=== PATIENT | female | born 1940 | race Two or more races ===

== ENCOUNTER → 2024-12-07 | Outpatient (CLI) | payer MEDICARE, MEDICAID, SELFPAY ==
--- NOTE | 2024-12-07 | XR_ITS ---
Examination: CT brain head without contrast. 2-D sagittal coronal reconstructions Date and time of exam:December 07, 2024 at 1242 hrs. Indications: Frequent falls over the last 2 weeks with injury to the head followed by headache CTDI: vol (mGy):40.9 DLP: (mGycm):944 Technique: Multiple CT axial sections of the brain have been obtained, 5 mm slice thickness. Contrast has not been administered. 2-D sagittal, coronal reconstructions have been obtained Low dose protocols were performed. One or more of the following dose reduction techniques were used; automated exposure control, adjustment of the mA and/or KV according to patient size, use of iterative reconstruction technique. Findings: No significant ventricular enlargement. Intra-axial or extra-axial hemorrhage density is not seen. No mass effect or midline shift Basal cisterns are not remarkable. Fourth ventricle is midline. Cranial vault intact. Impression: Negative for acute hemorrhage, mass effect or midline shift
== END | disposition home or self-care (01) ==
PROVIDERS: PCP Nurse Practitioner Family; Referring Provider Nurse Practitioner Family; Visit Provider Nurse Practitioner Family
DX: R51.9 Headache, unspecified (principal)
CPT/HCPCS: 70450

== ENCOUNTER → 2025-01-02 | Outpatient (CLI) | payer MEDICARE, MEDICAID, SELFPAY ==
--- NOTE | 2025-01-02 13:30 | ECHO_ITS ---
Transthoracic Echo Report Ht (in): 64 Wt (lb): 208 Exam Location: Lab Status: Preadmit Rda: TIAN Faustin^^^^ Indications: Procedure Performed: BP: / HR: MEASUREMENTS (Male / Female) Normal Values 2D ECHO LV Diastolic Diameter PLAX 4.8 cm 4.2 - 5.9 / 3.9 - 5.3 cm LV Systolic Diameter PLAX 3.1 cm IVS Diastolic Thickness 0.9 cm 0.6 - 1.0 / 0.6 - 0.9 cm LVPW Diastolic Thickness 1.0 cm 0.6 - 1.0 / 0.6 - 0.9 cm LV Relative Wall Thickness 0.4 LVOT Diameter 1.7 cm Aortic Root Diameter 2.9 cm LA Systolic Diameter LX 3.2 cm 3.0 - 4.0 / 2.7 - 3.8 cm LV Ejection Fraction MOD 4C 61.2 % LV Ejection Fraction 4C AL 61.8 % LA Volume Index 23.8 cm?/m? 16 - 28 cm?/m? Ascending Aorta Diameter 2.8 cm DOPPLER AV Peak Velocity 138.5 cm/s AV Peak Gradient 7.7 mmHg AV Mean Gradient 4.0 mmHg AV Velocity Time Integral 29.7 cm LVOT Peak Velocity 82.8 cm/s LVOT Peak Gradient 2.7 mmHg LVOT Velocity Time Integral 20.0 cm AV Area Cont Eq vti 1.5 cm? AV Area Cont Eq pk 1.4 cm? MV Area PHT 3.5 cm? Mitral E Point Velocity 61.8 cm/s Mitral A Point Velocity 77.7 cm/s Mitral E to A Ratio 0.8 LV E' Lateral Velocity 7.2 cm/s Mitral E to LV E' Lateral Ratio 8.6 LV E' Septal Velocity 6.6 cm/s Mitral E to LV E' Septal Ratio 9.4 TR Peak Velocity 300.0 cm/s TR Peak Gradient 36.0 mmHg PV Peak Velocity 118.0 cm/s PV Peak Gradient 5.6 mmHg RVOT Peak Velocity 74.6 cm/s FINDINGS Left Ventricle Normal left ventricular size, wall thickness, systolic function with no obvious regional wall motion abnormalities. There is grade I diastolic dysfunction of the left ventricle (impaired relaxation pattern). The left ventricular ejection fraction is normal, estimated at 60-65%. Right Ventricle The right ventricle is normal in size and systolic function. The estimated right ventricular systolic pressure, 36 mmHg. Left Atrium The left atrium is normal by two-dimensional, color flow and Doppler imaging with no structural abnormalities, no thrombus formation present. Right Atrium The right atrium is normal by two-dimensional imaging, color flow and Doppler imaging with no structural abnormalities, no thrombus formation present. Atrial Septum The interatrial septum appears normal with no evidence of a shunt. Aorta The aorta is normal by two-dimensional, color flow and Doppler interrogation. Mitral Valve Trace to mild mitral regurgitation. Mild mitral annular calcification. Aortic Valve Aortic valve sclerosis. Tricuspid Valve There is mild tricuspid valve regurgitation. Pulmonic Valve Trivial pulmonic valve regurgitation. Vessels The pulmonary artery appears normal. The inferior vena cava pulmonary and hepatic veins appear normal. Pericardium The pericardium is normal by two-dimensional imaging. There is no significant pericardial effusion. CONCLUSIONS Indication: Preoperative cardiovascular examination Normal LV size and function with an EF of 60 to 65%. Stage I diastolic dysfunction. Normal RV size and function. Mildly elevated RVSP at 35-40 mmHg. Trace TR and MR. Mild MAC. No evidence of any pericardial effusion. Arnold Carlisle (Electronically Signed) Final Date: 02 Jan 2025 20:09
== END | disposition home or self-care (01) ==
LOC: SDIM 13:11
PROVIDERS: PCP Nurse Practitioner Family; Referring Provider Nurse Practitioner Family; Visit Provider Nurse Practitioner Family
DX: I51.89 Other ill-defined heart diseases (principal); Z86.79 Personal history of other diseases of the circulatory system
CPT/HCPCS: 93306

== ENCOUNTER → 2025-08-09 | Outpatient (CLI) | payer MEDICARE, MEDICAID, SELFPAY ==
--- NOTE | 2025-08-09 15:04 | XR_ITS ---
EXAMINATION: Bilateral AP knee single view Right lateral knee left lateral knee 2 views TECHNIQUE: Bilateral AP knees upright single view Upright lateral right and left knees 2 views total 3 views Date and time: August 09, 2025, 1531 hours INDICATIONS: Multiple falls over the last 20 years with knee pain. FINDINGS: Severe osteopenia Severe narrowing lateral joint space right knee [id number] Severe osteoarthritis right patellofemoral joint Severe narrowing medial joint space left knee Severe osteoarthritis left patellofemoral joint No fractures IMPRESSION: Severe narrowing lateral joint space right knee, [id number] Severe osteoarthritis right patellofemoral joint Severe narrowing medial joint space left knee, [id number] Severe osteoarthritis left patellofemoral joint
== END | disposition home or self-care (01) ==
PROVIDERS: PCP Nurse Practitioner Family; Referring Provider Nurse Practitioner Family; Visit Provider Nurse Practitioner Family
DX: M17.0 Bilateral primary osteoarthritis of knee (principal)
CPT/HCPCS: 73560